=== PATIENT | female | born 1985 | race American Indian/Alaskan Native ===

== ENCOUNTER 2018-09-02 07:58 | Emergency (ER) | payer OTHER ==
[2018-09-02 07:59] VITALS: BMI 22.1
[2018-09-02 08:23] VITALS: O2SAT 99
[2018-09-02] MEDS ORDERED: Diphenhydramine 1% Cream (1 oz) TOP STA (09:05)
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
[2018-09-02 09:39] VITALS: BP 133/96; PULSE 88; RESP 18; TEMP 98.1
== END 2018-09-02 09:38 | disposition home or self-care (01) ==
LOC: C.ER 07:58
DX: T78.40XA Allergy, unspecified, initial encounter (principal); X58.XXXA Exposure to other specified factors, initial encounter